=== PATIENT | male | born 1940 | race Caucasian/White ===

== ENCOUNTER 2016-07-13 10:27 | Day surgery (SDC) | payer MEDICARE ==
[~2016-07-13 10:27] MED LIST: ALPRAZolam 0.25 MG TAB PO ONE; SODIUM BICARB 4% 5 ML VIAL (0.48 MEQ/ML) MISCELLANE PRN
[2016-07-13 11:13] VITALS: RESP 14; TEMP 97.7
--- NOTE | 2016-07-13 12:31 | US ---
Ultrasound-guided right axilla lymph node core biopsy CLINICAL HISTORY: Abnormal CAT scan with enlarged right lymph nodes FINDINGS: The procedure was explained to the patient. The risks, complications, benefits and alternatives were discussed and any questions were answered. Informed consent was obtained. Patient was placed supin e on the ultrasound table and prepped and draped in the usual sterile fashion. Utilizing a 18 gauge needle, 3 samples were obtained through the requested lymph node.. Patient was stable throughout the procedure. Pathology is pending. All elements of maximal barrier technique were utilized. IMPRESSION: 1. Successful ultrasound guided core biopsy right axilla mass, lymph node. Pathology pending.
[2016-07-13 12:35] VITALS: BP 127/66; PULSE 73
== END 2016-07-13 12:28 | disposition home or self-care (01) ==
LOC: RADPROMAIN 10:27
PROVIDERS: ATTEND Internal Medicine Hematology & Oncology
DX: C96.9 Malignant neoplasm of lymphoid, hematopoietic and related tissue, unspecified (principal); C34.11 Malignant neoplasm of upper lobe, right bronchus or lung
CPT/HCPCS: 38505; 76942; 81210; 81235; 81275; 81276; 81404; 81405; 81479; 88305; 88341; 88342; 88377

== ENCOUNTER → 2016-09-22 | Outpatient (CLI) | payer MEDICARE ==
[2016-09-22 08:46] LABS: Blood Urea Nitrogen 34 mg/dL (9-20); Non-African American GFR(MDRD) >60 (>60 ml/min/1.73 sqM)
--- NOTE | 2016-09-22 09:47 | CT ---
EXAMINATION TYPE: CT chest w con DATE OF EXAM: 09/22/2016 9:09 AM COMPARISON: 06/29/2016, 03/23/2016, 07/15/2015 HISTORY: 75 year-old male history of Lung CA. Prior left lung bullectomy. TECHNIQUE: Contiguous axial scanning of the chest after the administration of 80 mL of Visipaque 320. Coronal/sagittal reconstructions performed. CT DLP: 267.5mGycm. Automatic exposure control utilized for a dose reduction. FINDINGS: The heart is normal size without pericardial effusion. Coronary vessel calcifications are present in remarkable for coronary artery disease. Ascending aorta is ectatic at 3.7 cm with mild atherosclerotic arch calcifications and conventional a [facility] vessel branching anatomy. There is ectasia of the upper abdominal aorta at 3.0 cm and ectasia of the lower descending thoracic aorta at 2.7 cm with moderate atherosclerotic change. Scattered small mediastinal lymph nodes. However, there is right axillary lymphadenopathy with hernan us enlarged lymph nodes measuring up to 1.7 cm short axis with lymph nodes measuring up to 1.5 cm nate rt axis on 06/21/2016 and more numerous from 03/23/2016. There is stable minimal residual pleural parenchymal thickening at the site of previous medial right upper lobe mass. Staple line from prior right apical bullectomy. Advanced emphysematous change especially in the upper lungs. Stable pleural parenchymal scarring post erior left upper lobe, axial image 12 and 13. No new suspicious pulmonary nodule or mass. No consolid ation or pleural effusion. Some surgical clips are noted at the GE junction. There is a moderate-sized hiatal hernia. Stable 1.7 cm cyst anterior left kidney. Adrenal glands remain clear. Inferior splenule noted. Bones: Right-sided thoracotomy change. No osseous destructive process. Degenerative disc disease mid to lower thoracic spine. IMPRESSION: 1. Redemonstrated suspicious right axillary lymphadenopathy measuring up to 1.7 cm short axis. As com pared to 06/29/2016, some of these lymph nodes are larger by a couple millimeters. 2. Advanced emphysema with stable pleural parenchymal thickening along the medial right upper lobe at the site of patient's previous lung mass. 3. Moderate sized hiatal hernia.
== END | disposition home or self-care (01) ==
LOC: RADCTMAIN 08:04
PROVIDERS: ATTEND Internal Medicine Hematology & Oncology
DX: J43.9 Emphysema, unspecified (principal); R91.8 Other nonspecific abnormal finding of lung field; C34.11 Malignant neoplasm of upper lobe, right bronchus or lung
CPT/HCPCS: 82565; 84520; 71260; 36415; Q9967

== ENCOUNTER 2016-11-18 11:51 | Observation (INO) | payer MEDICARE ==
[2016-11-18] MEDS ORDERED: oxyCODONE-APAP 5-325MG 1 EACH TAB PO PRN (14:00)
[2016-11-18] MEDS ORDERED: NALOXONE 0.4 MG/ML 1 ML VIAL IV PRN (14:00)
[2016-11-18] MEDS ORDERED: MAGNESIUM HYDROXIDE 2,400 MG/10 ML CUP PO PRN (14:00)
[2016-11-18] MEDS ORDERED: methylPREDNISolone SOD SUCCI 125 MG/2 ML VIAL IV STA (14:04)
[2016-11-18] MEDS ORDERED: IPRATROPIUM-ALBUTEROL 3 ML NEB INHALATION PRN (14:04)
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
[2016-11-18 15:39] LABS: INR 1.2 (<1.1); Prothrombin Time 11.5 sec (9.0-12.0)
[2016-11-18] MEDS: ENOXAPARIN 40 MG/0.4 ML SYRINGE SQ SCH (15:39)
[2016-11-18 15:41] LABS: Anisocytosis Slight; Basophils # (A) 0.1 k/uL (0-0.2); Basophils % (A) 1 %; CH 34.2; CHCM 32.8; Eosinophils # (A) 0.1 k/uL (0-0.7); Eosinophils % (A) 1 %; HCT 27.4 % (39.0-53.0); HDW 2.95; Luc # (Auto) 0.22; Luc % (Auto) 4; Lymphocytes # (A) 1.1 k/uL (1.0-4.8); Lymphocytes % (A) 19 %; MCH 34.5 pg (25.0-35.0); MCHC 32.9 g/dL (31.0-37.0); MCV 104.8 fL (80.0-100.0); Macrocytosis Marked; Mean Platelet Volume 6.8; Monocytes # (A) 0.7 k/uL (0-1.0); Monocytes % (A) 13 %; Neutrophils # (A) 3.6 k/uL (1.3-7.7); Neutrophils % (A) 63 %; RBC 2.61 m/uL (4.30-5.90); WBC 5.7 k/uL (3.8-10.6); WBC (Perox) 5.37
[2016-11-18 15:41] LABS: Appearance,Urine Clear (Clear); Bilirubin,Urine Negative (Negative); Glucose,Urine (UA) Negative (Negative); Ketones,Urine Negative (Negative); Leukocyte Esterase,Urine Negative (Negative); Nitrite,Urine Negative (Negative); Protein,Urine Negative (Negative); Specific Gravity,Urine 1.014 (1.001-1.035); UA Billing (MACRO vs. MICRO) CHEM; Urobilinogen,Urine <2.0 mg/dL (<2.0)
[2016-11-18] MEDS: MORPHINE SULFATE 4 MG/ML SYRINGE IV PRN ×2 (15:49→19:56)
[2016-11-18 15:53] LABS: ALT 77 U/L (21-72); AST 63 U/L (17-59); Alkaline Phosphatase 102 U/L (38-126); Amylase 51 U/L (30-110); Anion Gap 9 mmol/L; Blood Urea Nitrogen 23 mg/dL (9-20); Calcium 9.6 mg/dL (8.4-10.2); Carbon Dioxide 27 mmol/L (22-30); Chloride 104 mmol/L (98-107); Glucose 82 mg/dL (74-99); LDH 868 U/L (313-618); Magnesium 1.5 mg/dL (1.6-2.3); Non-African American GFR(MDRD) >60 (>60 ml/min/1.73 sqM); Phosphorous 3.8 mg/dL (2.5-4.5); Potassium 4.1 mmol/L (3.5-5.1); Sodium 140 mmol/L (137-145); Total Bilirubin 0.6 mg/dL (0.2-1.3)
[2016-11-18 15:57] LABS: Polychromasia Present
[2016-11-18 17:16] VITALS: RESP 16
[2016-11-18] MEDS: FAMOTIDINE 20 MG TAB PO SCH (19:51)
[2016-11-18] MEDS: SYMBICORT 160-4.5 MCG INHALER INHALATION SCH (20:24)
[2016-11-18] MEDS ORDERED: ATORVASTATIN 40 MG TAB PO SCH (21:00)
[2016-11-18] MEDS ORDERED: MELATONIN 3 MG TABLET PO PRN (21:00)
[2016-11-18 23:57] LABS: Glucose,Whole Blood 154 mg/dL (75-99)
[2016-11-19 05:59] LABS: Glucose,Whole Blood 119 mg/dL (75-99)
[2016-11-19] MEDS: SYMBICORT 160-4.5 MCG INHALER INHALATION SCH (07:30)
[2016-11-19 09:05] VITALS: TEMP 98.3
[2016-11-19] MEDS: FAMOTIDINE 20 MG TAB PO SCH (09:09)
[2016-11-19] MEDS: MORPHINE SULFATE 4 MG/ML SYRINGE IV PRN (09:10)
[2016-11-19 12:49] LABS: Glucose,Whole Blood 109 mg/dL (75-99)
[2016-11-19 13:07] VITALS: BMI 23.8
[2016-11-19] MEDS: ENOXAPARIN 40 MG/0.4 ML SYRINGE SQ SCH (13:37)
--- NOTE | 2016-11-19 15:50 | NM ---
EXAMINATION TYPE: NM bone scan whole body DATE OF EXAM: 11/19/2016 3:20 PM COMPARISON: Correlation CT chest 09/22/2016 HISTORY: 75-year-old male lumbar pain for one week radiating down the legs. History of lung cancer. TECHNIQUE: Delayed whole-body scanning was performed following the injection of 26.4 mCi Tc 99m MDP. Whole body anterior and posterior images acquired 3 hours post injection. FINDINGS: There is focal intense tracer activity involving the mid thoracic vertebral body, possibly T7. No oth er suspicious tracer accumulation is seen. There is a S-shaped scoliotic curvature. IMPRESSION: Focal intense tracer activity involving a midthoracic vertebral body, probably T7. Findings could rep resent a solitary osseous metastasis or osteoporotic/pathologic compression fracture.
--- NOTE | 2016-11-19 15:55 | P.DS ---
Providers Date of admission: 11/18/16 13:30 Attending physician: Shakila Cevallos Primary care physician: [facility] Course: This is a 75-year-old gentleman with diagnosis of metastatic lung cancer who underwent chemotherapy 3 weeks ago is seen by Dr. Junior is sent from [facility] with complaints of acute onset lumbar back pain. Patient noted acute onset lumbar pain a week ago. Stated that he was not performing any physical activity at that time. Stated that the pain has gotten progressively worse over the last week and limited [facility]. Patient was noted to have some degree of reproducible T with straight leg on the left side hence was sent into our hospital for further evaluation. Patient denies having any numbness or tingling his main complaint is pain at his lower back shooting down his left lower extremity denies having any loss of rectal for her urinary control No fevers chills nausea vomiting or diarrhea is reported She states that he underwent his last [place] noted to have a PET scan in 2014 however no repeat scans are noted Patient status pain is uncontrolled 11/19/2016 Patient is comfortable. Is able to get out of bed without much difficulty States that his back pain is more tolerable No motor or sensory weakness is appreciated Does continue to have some pain in his back that is reproducible from significant straight leg raise on the left side Neck is supple no JVD Lungs good air entry clear to auscultation no rhonchi or wheezing Heart S1-S2 heard regular rate and rhythm no murmurs appreciated Abdomen is soft nontender no organomegaly bowel sounds are intact Neurologically cranial nerves II-12 grossly intact no focal motor or sensory deficits noted Skin no abnormalities appreciated Assessment and Plan Plan: Acute lumbar nerve root compression #2 metastatic lung cancer #3 history of tobacco use #4 COPD #5 hypertension #6 dyslipidemia After discussion MRI is canceled. Obtained a bone scan the results do show a lesion on T7 the interpretation will be deferred to Dr. Junior Current patient's symptoms are appear to be in the L2 L1 area and have improved significantly which clinically would be convincing of a mild disc herniation with some vertebral muscle spasms We'll discharge the patient on recommendations of light activity and pain control with Flexeril as well Plan - Discharge Summary New Discharge Prescriptions: Cyclobenzaprine [Flexeril] 5 mg PO TID #20 tablet oxyCODONE-APAP 5-325MG [Percocet 5-325 mg] 1 each PO Q4HR PRN #50 tab PRN Reason: Severe Pain Discharge Medication List Albuterol Sulfate [Proair Hfa] 1 - 2 puff INHALATION RT-Q6H PRN 07/14/15 [ History] Budesonide/Formoterol Fumarate [Symbicort 160-4.5 Mcg Inhaler] 2 puff INHALATION RT-BID 07/14/15 [History] Fish Oil/Dha/Epa [Fish Oil 1,200 mg Fish Oil] 1,200 mg PO DAILY 07/14/15 [ History] Multivit-Min/FA/Lycopene/Lut [Centrum Silver Tablet] 1 tab PO DAILY 07/14/15 [ History] Tiotropium 18 Mcg/Puff [Spiriva] 1 cap INHALATION DAILY 07/14/15 [History] Atorvastatin Calcium [Lipitor] 40 mg PO HS 07/11/16 [History] Cholecalciferol (Vitamin D3) [Vitamin D3] 10,000 unit PO WEEKLY 07/11/16 [ History] predniSONE 10 mg PO DAILY 11/18/16 [History] Cyclobenzaprine [Flexeril] 5 mg PO TID #20 tablet 11/19/16 [Rx] oxyCODONE-APAP 5-325MG [Percocet 5-325 mg] 1 each PO Q4HR PRN #50 tab 11/19/16 [ Rx] Follow up Appointment(s)/Referral(s): Rich Littlejohn MD [STAFF PHYSICIAN] - 1 Week (Patient to call Dr. Littlejohn's office Monday to schedule a follow up appointment, the office is closed at time of discharge.) Patient Instructions/Handouts: Oxycodone/Acetaminophen (By mouth), Cyclobenzaprine (By mouth) Discharge Disposition: HOME SELF-CARE
[2016-11-19 16:49] VITALS: BP 140/72; PULSE 89
== END 2016-11-19 16:30 | disposition home or self-care (01) ==
LOC: 5ONC 13:30
PROVIDERS: ADMIT Internal Medicine; ATTEND Internal Medicine
DX: G54.4 Lumbosacral root disorders, not elsewhere classified (principal); C34.91 Malignant neoplasm of unspecified part of right bronchus or lung; Z87.891 Personal history of nicotine dependence; J44.9 Chronic obstructive pulmonary disease, unspecified; I10 Essential (primary) hypertension; E78.5 Hyperlipidemia, unspecified; Z92.21 Personal history of antineoplastic chemotherapy; Z92.3 Personal history of irradiation; Z83.3 Family history of diabetes mellitus; Z82.49 Family history of ischemic heart disease and other diseases of the circulatory system; Z88.4 Allergy status to anesthetic agent; Z88.8 Allergy status to other drugs, medicaments and biological substances; I25.2 Old myocardial infarction; M19.90 Unspecified osteoarthritis, unspecified site; Z87.01 Personal history of pneumonia (recurrent); Z95.5 Presence of coronary angioplasty implant and graft
CPT/HCPCS: 96376 ×2; 96374; 96375; 94640 ×2; 82747; 80053; 82607; 82150; 82310; 83615; 83690; 83735; 84100; 85025; 85610; 81003; 78306; G0378 ×2; G0379; A9503; J2270 ×2; J2930

== ENCOUNTER → 2016-11-24 | Outpatient (CLI) | payer MEDICARE ==
--- NOTE | 2016-11-24 17:35 | MR ---
EXAMINATION TYPE: MR thoracic spine wo/w con DATE OF EXAM: 11/24/2016 5:20 PM COMPARISON: NONE HISTORY: Mid back pain x 2 weeks, lung ca 2017 CONTRAST: Standard multiplanar, multisequence MRI departmental protocol utilizing 15 mL intravenous MultiHance gadolinium contrast. FINDINGS: There is a mild thoracic kyphotic curvature. There is anterior wedging of T7 vertebra with 25% loss of height. There is 15% wedging of T6. There is increased signal on the T2 images involving the T6 T5 T4 T3 T2 vertebral bodies. 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 I see no paraspinal mass. Posterior elements appear intact. The thoracic spinal cord has fairly normal signal pattern. There i s no evidence of edema or mass. There is no evidence of thoracic spinal stenosis. There is mild enhan cement within the posterior aspect of the T7 vertebral body. IMPRESSION: There are mild compression fractures of T6 and T7. There are signal changes in the vertebra from T2 t o T6 consistent with a radiation portal with mild edema. There is also some edema in the T7 vertebral body. A destructive focal mass is not definitely seen. The possibility of pathologic fracture cannot be entirely Excluded in T7 vertebral body. I think that osteoporotic fracture is more likely. I do not see a focal area of bone destruction or e xpansion to suggest metastatic disease.
== END | disposition home or self-care (01) ==
LOC: RADMRIMAIN 15:55
PROVIDERS: ATTEND Internal Medicine Hematology & Oncology
DX: C34.90 Malignant neoplasm of unspecified part of unspecified bronchus or lung (principal); M48.54XA Collapsed vertebra, not elsewhere classified, thoracic region, initial encounter for fracture
CPT/HCPCS: 72157; A9577; 80053

== ENCOUNTER → 2016-12-19 | Outpatient (CLI) | payer MEDICARE ==
[2016-12-19 13:03] LABS: Blood Urea Nitrogen 31 mg/dL (9-20); Non-African American GFR(MDRD) >60 (>60 ml/min/1.73 sqM)
--- NOTE | 2016-12-19 13:53 | CT ---
EXAMINATION TYPE: CT chest w con DATE OF EXAM: 12/19/2016 COMPARISON: 09/22/2016 CT, MRI of thoracic spine 11/26/2016 HISTORY: Lung CA CT DLP: 294.5 mGycm Automated exposure control for dose reduction was used. CONTRAST: CT scan of the chest is performed with IV Contrast, patient injected with 100 mL of Omnipaque 300. FINDINGS: The heart is normal size without pericardial effusion. Coronary vessel calcifications are present in remarkable for coronary artery disease. Ascending aorta is ectatic at 3.7 cm with mild atherosclerotic arch calcifications and conventional a [facility] vessel branching anatomy. There is ectasia of the upper abdominal aorta at 3.0 cm and ectasia of the lower descending thoracic aorta at 2.7 cm with moderate atherosclerotic change. Scattered small mediastinal lymph nodes. However, there is right axillary lymphadenopathy with hernan us enlarged lymph nodes measuring up to 2.0 cm short axis with lymph nodes measuring up to 1.7 cm nate rt axis on previous. There is stable minimal residual pleural parenchymal thickening at the site of previous medial right upper lobe mass. Staple line from prior right apical bullectomy. Advanced emphysematous change especially in the upper lungs. Stable pleural parenchymal scarring post erior left upper lobe. No new suspicious pulmonary nodule or mass. No consolidation or pleural effusion. Some surgical clips are noted at the GE junction. There is a mo derate-sized hiatal hernia. Stable 1.7 cm cyst anterior left kidney. Indeterminate right renal lesion. Adrenal glands remain anna r. Inferior splenule noted. Bones: Right-sided thoracotomy change. No osseous destructive process. Degenerative disc disease mid to lower thoracic spine. Rib deformity on the right may be related to previous surgery rather than me tastasis is stable from previous. There is a compression fracture mid thoracic spine moderate to kitty re degree The previous exam. No definite soft tissue component. IMPRESSION: 1. Redemonstrated suspicious right axillary lymphadenopathy measuring up to 2 cm cm short axis. These are increased in size from the previous exam with a maximal short axis measurement was 1.7 cm. 2. Advanced emphysema with stable pleural parenchymal thickening along the medial right upper lobe at the site of patient's previous lung mass. 3. Moderate sized hiatal hernia. 4. Moderate compression fracture mid thoracic spine. Findings stable to recent MRI.
== END | disposition home or self-care (01) ==
LOC: RADCTMAIN 12:00
PROVIDERS: ATTEND Internal Medicine Hematology & Oncology
DX: C34.11 Malignant neoplasm of upper lobe, right bronchus or lung (principal); J43.9 Emphysema, unspecified
CPT/HCPCS: 82565; 84520; 71260; 36415; Q9967

== ENCOUNTER 2017-01-17 12:07 | Day surgery (SDC) | payer MEDICARE ==
[2017-01-17 13:03] VITALS: TEMP 97.4
[2017-01-17] MEDS ORDERED: CHLOROPROCAINE 3% 30 MG/ML 20 ML VIAL CAUDALBLCK PRN (13:14)
--- NOTE | 2017-01-17 14:30 | US ---
ULTRASOUND GUIDED CORE BIOPSY RIGHT NECK MASS: CLINICAL HISTORY: Right neck mass FINDINGS: The procedure was explained to the patient. The risks, complications, benefits and alternatives were discussed and any questions were answered. Informed consent was obtained. Patient was placed supin e on the ultrasound table and prepped and draped in the usual sterile fashion. Utilizing a 18 gauge needle, 2 18-gauge core samples were obtained through the right neck mass.. Patient was stable throughout the procedure. Pathology is pending. All elements of maximal barrier and sterile technique were utilized. IMPRESSION: 1. Successful ultrasound guided core biopsy right neck mass.
[2017-01-17 14:37] VITALS: BP 123/79; PULSE 90; RESP 16
== END 2017-01-17 14:30 | disposition home or self-care (01) ==
LOC: RADPROMAIN 12:07
PROVIDERS: ATTEND Internal Medicine Hematology & Oncology
DX: C96.9 Malignant neoplasm of lymphoid, hematopoietic and related tissue, unspecified (principal); C34.11 Malignant neoplasm of upper lobe, right bronchus or lung
CPT/HCPCS: 88305; 88342; 88341; 76942; 38505; J2400

== ENCOUNTER 2017-02-08 12:55 | Day surgery (SDC) | payer MEDICARE ==
[2017-02-07 12:54] VITALS: BMI 23.6
[~2017-02-08 12:55] MED LIST changes: -ALPRAZolam 0.25 MG TAB PO ONE; +HYDROmorphone 1 MG/ML 1 ML SYRINGE IVP PRN; +LACTATED RINGERS 1,000 ML IV SCH; +LIDOCAINE 1% 20 ML VIAL (10MG/ML) FOR IV START INTRADERMA PRN; +Pre Op ABX Message 1 EACH MISC MISCELLANE ONE; -SODIUM BICARB 4% 5 ML VIAL (0.48 MEQ/ML) MISCELLANE PRN
[2017-02-08 13:17] VITALS: TEMP 97
[2017-02-08 13:33] LABS: Glucose,Whole Blood 95 mg/dL (75-99)
[2017-02-08 13:36] LABS: CH 32.4; HCT 39.4 % (39.0-53.0); HDW 2.35; HGB 12.9 gm/dL (13.0-17.5); MCH 32.2 pg (25.0-35.0); MCHC 32.7 g/dL (31.0-37.0); MCV 98.5 fL (80.0-100.0); Mean Platelet Volume 7.1; RDW 14.2 % (11.5-15.5); WBC 5.4 k/uL (3.8-10.6)
[2017-02-08] MEDS ORDERED: LIDOCAINE 1% INJ 10MG/ML (20 ML MDV) ONE (15:18)
[2017-02-08] MEDS ORDERED: PROPOFOL 10 MG/ML 20 ML VIAL IV ONE (15:18)
[2017-02-08] MEDS ORDERED: KETAMINE 10 MG/ML 20 ML VIAL ONE (15:18)
[2017-02-08] MEDS ORDERED: fentaNYL (PF) 50 MCG/ML 2 ML AMP ONE (15:18)
[2017-02-08] MEDS ORDERED: MIDAZOLAM 2 MG/2 ML VIAL ONE (15:18)
[2017-02-08] MEDS ORDERED: HEPARIN SODIUM,PORCINE 100 UNIT/ML 5 ML VIAL IV ONE ×3 (15:32)
[2017-02-08] MEDS ORDERED: SODIUM CHLORIDE 0.9% 50 ML with ceFAZolin 2,000 MG IV ONE ×2 (15:34)
[2017-02-08] MEDS ORDERED: BUPIVACAINE (PF) 0.25% 30 ML VIAL SQ ONE ×2 (15:44)
[2017-02-08] MEDS ORDERED: LACTATED RINGERS 1,000 ML IV ONE ×2 (16:28)
[2017-02-08 16:49] VITALS: RESP 16
[2017-02-08 17:07] VITALS: PULSE 73
--- NOTE | 2017-02-08 17:10 | FL ---
Fluoroscopy Fluoroscopy support 32 seconds fluoroscopy time supplied to the referring clinician. 1 intraoperative C-arm images docum ent the procedure. See dictated report from general surgery.
[2017-02-08 17:26] VITALS: BP 141/80
--- NOTE | 2017-02-08 17:56 | XR ---
EXAMINATION TYPE: XR chest 1V confirm line [facility] DATE OF EXAM: 02/08/2017 COMPARISON: CT chest December 19, 2016. Chest x-ray July 15, 2015. HISTORY: Port placement. TECHNIQUE: Single AP portable frontal upright view of the chest is obtained. FINDINGS: There is new right internal jugular Mediport catheter with tip in SVC. There is background chronic emphysematous change with biapical scarring. There is no focal air space opacity, pleural ef fusion, or pneumothorax seen. The cardiac silhouette size is upper limits of normal with atheroscler otic thoracic aorta. Retrocardiac opacity consistent with moderate size hiatal hernia is redemonstr ated. The osseous structures are demineralized. IMPRESSION: New right internal jugular Mediport catheter with tip in SVC. No evidence of sizable pne umothorax. Moderate to severe emphysematous change with upper lung scarring. Moderate size hiatal her lester redemonstrated.
--- NOTE | 2017-02-13 11:52 | P.OP ---
Date of Procedure: 02/08/17 Preoperative Diagnosis: Metastatic lung cancer Postoperative Diagnosis: Same Procedure(s) Performed: Insertion of 8-Tamazight PowerPort under fluoroscopic and SonoSite guidance Implants: 8French powerport Anesthesia: MAC, local Pathology: none sent Condition: stable Disposition: PACU Indications for Procedure: 76 years old male presents for Mediport placement. He has metastatic lung cancer. Operative Findings: Description of Procedure: The patient was brought to the operating room and placed in supine position with both arms tucked. A footboard was placed. Chlorhexidine was used to prep the neck followed by application of sterile drapes and an Ioban dressing . A timeout was performed to verify correct patient and correct procedure. Patient was confirmed to receive perioperative IV antibiotics and VTE prophylaxis. An ultrasound was performed of the right neck to identify the carotid artery and internal jugular vein. The internal jugular vein was compressible and patent . Photodocumentation was made. Local anesthetic was infiltrated to create a field block. Seldinger technique was used and the internal jugular vein was accessed under direct ultrasound guidance. There was good backflow of dark venous blood. The guidewire was inserted and fluoroscopic images obtained to confirm the tip in SVC. The needle was removed followed by insertion of a dilator peel-away sheath. Local anesthetic was infiltrated along the inferior aspect of the right clavicle. A 2.5 cm skin incision was made and dissection was carried up to the pectoralis major muscle. A pocket was created for the port. The catheter tubing was connected to the port using the conector after flushing both the port and the catheter with normal saline. The tunneling device was connected to the end of the catheter and after placement of the port in the subcutaneous pocket the tunneling device was passed from the lower incision to the counter incision in the neck. The catheter was measured at the junction of SVC and right atrium. The inner cannula of the peel-away sheath was removed and catheter was gradually inserted. The peel-away sheath was gradually removed. Fluoroscopic image confirmed the tip of the catheter at the junction of SVC and right atrium. There was no kink, fold or torsion of the catheter and the port. The Sanchez needle was used to access the port and easy backflow was obtained. This was flushed with 10 mL of normal saline and 10 mL of Hep-Lock was inserted. The skin incision was closed in 3 layers using 3-0 Vicryl interrupted stitches and a running suture of 4-0 Monocryl. Counter incision in the neck was also closed using 3-0 Vicryl followed by 4-0 Monocryl. Dermabond skin glue was applied followed by Telfa and Tegaderm dressing. The sponge, instrument and needle count were correct -2 Patient tolerated the procedure well and was taken to post anesthesia care unit in stable condition Final chest x-ray showed the tip of the catheter in SVC and no pneumothorax. Total fluoroscopic time was 32 seconds
== END 2017-02-08 17:49 | disposition home or self-care (01) ==
LOC: OR 12:55
PROVIDERS: ATTEND Surgery
DX: C34.90 Malignant neoplasm of unspecified part of unspecified bronchus or lung (principal); I25.10 Atherosclerotic heart disease of native coronary artery without angina pectoris; I10 Essential (primary) hypertension; Z87.891 Personal history of nicotine dependence; J43.9 Emphysema, unspecified; K21.9 Gastro-esophageal reflux disease without esophagitis; Z95.1 Presence of aortocoronary bypass graft; Z79.82 Long term (current) use of aspirin; Z79.891 Long term (current) use of opiate analgesic; Z79.51 Long term (current) use of inhaled steroids; Z79.52 Long term (current) use of systemic steroids; Z79.899 Other long term (current) drug therapy; Z91.09 Other allergy status, other than to drugs and biological substances
CPT/HCPCS: 85027; 77001; 36561; 76937; C1788; J2250; J1642; J2001; J3010; J0690; J2704

== ENCOUNTER → 2017-04-20 | Outpatient (CLI) | payer MEDICARE ==
[2017-04-20 11:22] LABS: Blood Urea Nitrogen 18 mg/dL (9-20); Non-African American GFR(MDRD) >60 (>60 ml/min/1.73 sqM)
--- NOTE | 2017-04-20 13:14 | CT ---
EXAMINATION TYPE: CT chest w con DATE OF EXAM: 04/20/2017 COMPARISON: 12/09/2016 HISTORY: Follow up Lung Cancer CT DLP: 306.1 mGycm Automated exposure control for dose reduction was used. CONTRAST: CT scan of the chest is performed with IV Contrast, patient injected with 100 mL of Omnipaque 300. FINDINGS: The heart is normal size without pericardial effusion. Coronary vessel calcifications are present in remarkable for coronary artery disease. Emphysematous changes noted. Mediport catheter seen. Ascending aorta is ectatic at 3.7 cm with mild atherosclerotic arch calcifications and conventional a [facility] vessel branching anatomy. There is ectasia of the upper abdominal aorta at 3.0 cm and ectasia of the lower descending thoracic aorta at 2.7 cm with moderate atherosclerotic change. Scattered small mediastinal lymph nodes. There appear stable with a subcarinal lymph node measuring short axis of 8 mm. There is right axillary lymphadenopathy with of enlarged lymph nodes measuring up to 1.2 cm in short axis with lymph nodes measuring up to 2 cm in short axis on previous. There is stable minimal residual pleural parenchymal thickening at the site of previous medial right upper lobe mass. Staple line from prior right apical bullectomy. Advanced emphysematous change especially in the upper lungs. Stable pleural parenchymal scarring post erior left upper lobe. No new suspicious pulmonary nodule or mass. No consolidation or pleural effusion. Some surgical clips are noted at the GE junction. There is a mo derate-sized hiatal hernia. Stable 1.7 cm cyst anterior left kidney. Indeterminate right renal lesion . Adrenal glands remain clear. Inferior splenule noted. Coronary artery calcifications noted. Bones: Right-sided thoracotomy change. No osseous destructive process. Degenerative disc disease mid to lower thoracic spine. There is sclerosis involving the upper thoracic vertebral segment with very mild to moderate anterior wedge deformity suspicious for pathologic fracture and metastases. No defin ite soft tissue component. Rib deformity on the right may be related to previous surgery rather than metastasis is stable from previous. There is a compression fracture mid thoracic spine moderate to se zheng degree IMPRESSION: 1. Redemonstrated suspicious right axillary lymphadenopathy measuring up to 1.2 cm cm short axis. The se are reduced in size from the previous exam with a maximal short axis measurement was 2 cm. 2. Advanced emphysema with stable pleural parenchymal thickening along the medial right upper lobe at the site of patient's previous lung mass. 3. There now is a stable moderate compression deformity of the upper thoracic spine segment. Patholog ic fracture in the differential diagnosis with sclerosis and no surrounding soft tissue mass. 4. Moderate compression fracture mid thoracic spine. Findings stable to recent MRI.
== END | disposition home or self-care (01) ==
LOC: RADPROMAIN 10:30
PROVIDERS: ATTEND Internal Medicine Hematology & Oncology
DX: J43.9 Emphysema, unspecified (principal); J98.4 Other disorders of lung; C34.11 Malignant neoplasm of upper lobe, right bronchus or lung
CPT/HCPCS: 82565; 84520; 71260; Q9967; J1642

== ENCOUNTER → 2017-07-12 | Outpatient (CLI) | payer MEDICARE ==
[2017-07-12 12:06] LABS: Blood Urea Nitrogen 17 mg/dL (9-20)
--- NOTE | 2017-07-13 09:54 | CT ---
EXAMINATION TYPE: CT ChestAbdPelvis w con DATE OF EXAM: 07/13/2017 COMPARISON: CT chest April 20, [address] chest abdomen and pelvis December 22, 2015. O riginal PET/CT June 20, 2015. HISTORY: Lung cancer progress study. History of prior surgery. CT DLP: 1731 mGycm. Automated Exposure Control for Dose Reduction was Utilized. CONTRAST: CT scan of the thorax, abdomen and pelvis is performed with oral and with IV Contrast, patient inject ed with 100 ml mL of Omnipaque 350. FINDINGS: LUNGS: There is background moderate emphysematous change with more severe emphysematous change in the lung apices. There is stable mild eccentric pleural thickening anterior medial right upper lung near axial image 16 at area of prior mass or neoplasm. No new nodules or masses are identified. No pleura l effusion or pneumothorax is seen. MEDIASTINUM: There are no greater than 1 cm hilar or mediastinal lymph nodes. No cardiomegaly or pe ricardial effusion is seen. Coronary artery calcification is redemonstrated which is noted marker fo r coronary artery disease. OTHER: There is stable right internal jugular Mediport catheter with tip in SVC. There is stable susp icious right axillary adenopathy with reference 1.7 x 1.3 cm posterior axillary lymph node axial imag e 19 unchanged in size from most recent CT axial image 17. LIVER/GB: No significant abnormality is appreciated. PANCREAS: No significant abnormality is seen. SPLEEN: No significant abnormality is seen. ADRENALS: No significant abnormality is seen. KIDNEYS: There are a few simple appearing cysts scattered throughout both kidneys redemonstrated. BOWEL: There are surgical change near diaphragmatic hiatus. There is persistent moderate size hiatal hernia. There is no suspicious small or large bowel dilatation. There is sigmoid colonic diverticulos is redemonstrated. GENITAL ORGANS: Heterogeneous enlarged prostate gland consistent with BPH is redemonstrated. Suspect TURP type defect coronal image 50. LYMPH NODES: No greater than 1cm abdominal or pelvic lymph nodes are appreciated. OSSEOUS STRUCTURES: Osseous structures are demineralized with underlying scoliosis. There is mild to moderate chronic compression type fracture deformity T7 level with superior endplate sclerosis redemo nstrated. Moderate joint space loss in both hips, left greater than right with acetabular spurring is seen. Met allic screws right humeral head level are partially imaged. OTHER: There is moderate atherosclerotic change distal abdominal aorta extending to iliac branch vess els. IMPRESSION: Background moderate to advanced emphysematous change with stable suspicious right axillar y adenopathy or suspected metastatic disease. No convincing evidence of new metastatic disease in the abdomen or pelvis.
== END | disposition home or self-care (01) ==
LOC: RADCTMAIN 11:21
PROVIDERS: ATTEND Internal Medicine Hematology & Oncology
DX: C34.11 Malignant neoplasm of upper lobe, right bronchus or lung (principal); J43.9 Emphysema, unspecified
CPT/HCPCS: 82565; 84520; 71260; 74177; Q9967; J1642

== ENCOUNTER → 2017-10-05 | Outpatient (CLI) | payer MEDICARE ==
--- NOTE | 2017-10-06 08:21 | CT ---
EXAMINATION TYPE: CT ChestAbdPelvis w con DATE OF EXAM: 10/05/2017 COMPARISON: NONE HISTORY: Lung cancer CT DLP: 622.9 mGycm. Automated Exposure Control for Dose Reduction was Utilized. CONTRAST: CT scan of the thorax, abdomen and pelvis is performed with IV Contrast, patient injected with 100 mL of Isovue 300. FINDINGS: LUNGS: There is redemonstration of focal pleural parenchymal thickening medially within the right upp er lobe on images 19 and 20, similar to the prior exam of 07/12/2017. Biapical pleural parenchymal sca rring and focal pleural thickening along the right upper lobe peripherally on series 4 image 28 and 2 9 are also unchanged from the prior. Findings are superimposed upon a background of moderate parasept al and centrilobular emphysematous change. Right-sided Mediport is again noted. No new pulmonary nodu les, focal masses or focal consolidation are seen. Punctate subpleural nodular density is unchanged f rom the prior on series 4 image 42 within the posterior right lower lobe and may represent a small ar ea of chronic atelectasis as it appears somewhat linear. MEDIASTINUM: There are no greater than 1 cm hilar or mediastinal lymph nodes. No pericardial effusi on is seen. Moderate calcific atheromatous changes are seen of the thoracic aorta. Ascending thoraci c aorta and main pulmonary artery are nonenlarged although the ascending thoracic aorta is upper limi ts of normal measuring 3.9 cm. Moderate three-vessel coronary artery calcifications are noted. OTHER: There is increasing right axillary adenopathy for instance there is a lymph node within the garzon perior right axilla on series 3 image 16 measuring 1.4 cm in short axis as opposed to 1.0 cm in short axis on the prior exam just inferior to this on image 19 there is an additional enlarged lymph node measuring at least 1.7 cm in short axis and previously measuring less than 1 cm. The previously measu red 1.7 x 1.3 cm lymph node on image 22 measures 1.9 x 1.6 cm currently. Other enlarged right axillar y lymph nodes are also seen. Minimal bilateral retroareolar gynecomastia is identified. LIVER/GB: No hepatic lesion is identified. A focal area of wedge-shaped hypoattenuation is seen in se gment 4A along the fissure for the falciform ligament, most commonly related to focal fatty infiltrat ion. Gallbladder is unremarkable. PANCREAS: Parenchyma enhances homogeneously without ductal dilatation.. SPLEEN: No significant abnormality is seen. Small splenule is seen adjacent to the andreafski spleen. ADRENALS: No nodularity or thickening. KIDNEYS: Bilateral simple renal cysts are redemonstrated. No hydronephrosis. BOWEL: There is a moderate hiatal hernia and contrast seen to the level of the thyroid gland within t he esophagus which may represent gastroesophageal reflux or diminished propulsion/peristalsis and cou ld relate to presbyesophagus. Scattered colonic diverticula are present without pericolonic fat stranding. No evidence of dilated b owel or bowel obstruction. Surgical sutures are present around the gastroesophageal junction at the d iaphragmatic hiatus. GENITAL ORGANS: The prostate gland is diffusely enlarged and heterogenous containing peripheral zone calcifications and measuring up to 5.5 cm in transverse dimension. There is again a suspected TURP de fect. LYMPH NODES: No greater than 1cm abdominal or pelvic lymph nodes are appreciated. OSSEOUS STRUCTURES: Again there is osseous demineralization and stable compression deformity of T7. T here is sclerosis of the lateral aspect of rib 4 on the right that could relate to prior fracture def ormity and is retrospectively unchanged from the prior. No new suspicious osseous lesions are seen. S clerosis of the right iliac bone may be degenerative but is unchanged from the prior. Punctate bone i sland is noted within the right femoral head. OTHER: Moderate calcific atheromatous changes are seen of the abdominal aorta and its branches. IMPRESSION: 1. Increasing right axillary adenopathy, again suspicious for metastatic disease. The largest lymph node measures 1.9 x 1.6 cm and previously measured 1.7 x 1.3 cm with additional lymph node measuring 1.7 cm and previously measuring less than 1 cm. Other enlarged lymph nodes are seen within the right axilla. 2. Stable multifocal pleural parenchymal thickening most compatible with posttreatment change with no new pulmonary nodules or masses. No new mediastinal adenopathy. 3. Sclerosis of right lateral rib 4 may represent prior fracture and is similar to the prior exam as well as right sacral sclerosis that is favored to be degenerative. T7 vertebral body compression frac ture is stable. No other new osseous findings. 4. No new evidence of infradiaphragmatic visceral or osseous metastasis.
== END | disposition home or self-care (01) ==
LOC: RADPROMAIN 12:04
PROVIDERS: ATTEND Internal Medicine Hematology & Oncology
DX: C34.11 Malignant neoplasm of upper lobe, right bronchus or lung (principal); J94.8 Other specified pleural conditions; M89.8X8 Other specified disorders of bone, other site; S22.069A Unspecified fracture of T7-T8 vertebra, initial encounter for closed fracture; R59.0 Localized enlarged lymph nodes
CPT/HCPCS: 82565; 84520; 71260; 74177; J1642; Q9967

== ENCOUNTER → 2017-12-12 | Outpatient (CLI) | payer MEDICARE ==
[2017-12-12 11:05] VITALS: BP 154/67; PULSE 73; RESP 16; TEMP 97.7
[2017-12-12 11:49] LABS: ALT 24 U/L (21-72); AST 22 U/L (17-59); Cholesterol 202 mg/dL (<200); HDL Cholesterol 49 mg/dL (40-60); LDL Cholesterol,Calculated 135 mg/dL (0-99); Triglycerides 92 mg/dL (<150)
== END | disposition home or self-care (01) ==
LOC: PROCWHC3 10:03
PROVIDERS: ATTEND Internal Medicine Cardiovascular Disease
DX: E78.2 Mixed hyperlipidemia (principal)
CPT/HCPCS: 80061; 84450; 84460; 36591; J1642

== ENCOUNTER → 2017-12-27 | Outpatient (CLI) | payer MEDICARE ==
--- NOTE | 2017-12-27 13:04 | CT ---
EXAMINATION TYPE: CT ChestAbdPelvis w con DATE OF EXAM: 12/27/2017 COMPARISON: 10/05/2017 HISTORY: Lung cancer, suspected METs CT DLP: 638.4 mGycm CONTRAST: CT scan of the chest, abdomen and pelvis is performed with Oral Contrast and with IV Contrast, patien t injected with 100 mL of [address]. [address] Chest: LUNGS: Again noted is focal pleural parenchymal thickening medially within the right upper lobe on im ages 15 through 19, similar to the prior exam of 10/05/2017. Biapical pleural parenchymal scarring and focal pleural thickening along the right upper lobe peripherallyalso unchanged from the prior. Findin gs are superimposed upon a background of moderate paraseptal and centrilobular emphysematous change. Right-sided Mediport is again noted. No new pulmonary nodules, focal masses or focal consolidation ar e seen. Punctate subpleural nodular density is unchanged from the prior on series 4 image 42 within t he posterior right lower lobe and may represent a small area of chronic atelectasis as it appears arthur ewhat linear.Stable subpleural linear atelectasis. MEDIASTINUM: Fixed hiatal hernia Thoracic aorta is of normal caliber. The heart is not enlarged. N o evidence for mediastinal mass or adenopathy. HILAR STRUCTURES: No evidence for mass. No hilar adenopathy is appreciated. OTHER: Enlarging right axillary adenopathy with the largest lymph node measuring 2.4 cm versus 1.4 cm previously. Total number of enlarged lymph nodes is estimated at 5. No left axillary adenopathy. CONTRAST CT ABDOMEN AND PELVIS FINDINGS: LIVER/GB: No calcified gallstones. No space occupying hepatic lesion. Biliary tree is of normal ca liber. PANCREAS: No inflammation. No distinct mass. SPLEEN: No splenic enlargement. No lesion seen. ADRENALS: No nodule. No thickening. KIDNEYS/BLADDER: No hydronephrosis. No nephrolithiasis. No distinct solid renal mass. Renal cystic changes are stable. BOWEL: Normal appendix. Normal bowel caliber. No inflammation. GENITAL ORGANS: No gross abnormality. LYMPH NODES: No greater than 1cm abdominal or pelvic lymph nodes are appreciated. AORTA: No significant abnormality. OSSEOUS STRUCTURES: Stable sclerosis right rib 4. Stable thoracic compression fracture. Severe multil evel degenerative disc space narrowing. OTHER: No significant additional abnormality is seen. IMPRESSION: 1. Slight increase in right axillary adenopathy. 2. Stable multifocal pleural parenchymal thickening which may reflect posttreatment change. No new pu lmonary nodule or mass. No new mediastinal adenopathy.
[2017-12-27 14:54] LABS: Blood Urea Nitrogen 22 mg/dL (9-20)
== END | disposition home or self-care (01) ==
LOC: RADPROMAIN 09:07
PROVIDERS: ATTEND Internal Medicine Hematology & Oncology
DX: J92.9 Pleural plaque without asbestos (principal); R59.0 Localized enlarged lymph nodes; C34.11 Malignant neoplasm of upper lobe, right bronchus or lung
CPT/HCPCS: 82565; 84520; 71260; 74177; J1642; Q9967

== ENCOUNTER → 2018-06-05 | Outpatient (CLI) | payer MEDICARE ==
[2018-06-05 11:09] LABS: Blood Urea Nitrogen 20 mg/dL (9-20)
--- NOTE | 2018-06-05 11:50 | CT ---
EXAMINATION TYPE: CT chest w con DATE OF EXAM: 06/05/2018 COMPARISON: 03/08/2018 HISTORY: Follow up lung cancer CT DLP: 262.5 mGycm Automated exposure control for dose reduction was used. CONTRAST: CT scan of the chest is performed with IV Contrast, patient injected with 100 mL of Isovue 300. FINDINGS: LUNGS: There is a new spiculated anterior right upper lobe mass which measures 4.2 x 3.6 x 3.1 cm and demonstrates anterior pleural extension. Additional pleural-based nodule right mid lung zone measure s 1.1 cm and appears to have been present previously. Right lower lobe pulmonary nodule image 33 tyrone ures 5 mm and is new. No additional nodules identified. Areas of parenchymal scarring and interstitia l prominence right upper lobe anteriorly. Severe emphysematous changes redemonstrated. MEDIASTINUM: There are no greater than 1 cm hilar or mediastinal lymph nodes. No pericardial effusi on is seen. Thoracic aorta is of normal caliber. The heart is not enlarged. Moderate fixed hiatal he rnia. UPPER ABDOMEN: No significant abnormality appreciated. OTHER: Again noted are multiple enlarged right axillary lymph nodes totaling approximately 8 and num bandar. The largest lymph node measures 2.0 cm. Overall the adenopathy within the right axilla has decre ased in size. No new areas of adenopathy appreciated. Stable midthoracic compression fracture. IMPRESSION: 1. there is a new spiculated mass right upper lobe anteriorly as discussed above with pleural extensi on. This is felt to reflect malignancy until proven otherwise. New right lower lobe pulmonary nodule. Scattered pleural thickening right lung. 2. Severe emphysematous changes. 3. Right axillary adenopathy persists although has slightly improved.
== END | disposition home or self-care (01) ==
LOC: RADPROMAIN 10:12
PROVIDERS: ATTEND Internal Medicine Hematology & Oncology
DX: C34.11 Malignant neoplasm of upper lobe, right bronchus or lung (principal); J43.9 Emphysema, unspecified; R59.0 Localized enlarged lymph nodes
CPT/HCPCS: 82565; 84520; 71260; J1642; Q9967

== ENCOUNTER → 2018-07-17 | Outpatient (CLI) | payer MEDICARE ==
[2018-07-17 12:30] LABS: Blood Urea Nitrogen 21 mg/dL (9-20)
--- NOTE | 2018-07-17 13:13 | CT ---
EXAMINATION TYPE: CT chest w con DATE OF EXAM: 07/17/2018 COMPARISON: 06/05/2018 and 03/08/2018 HISTORY: Lung Cancer CT DLP: 393 mGycm. Automated Exposure Control for Dose Reduction was Utilized. TECHNIQUE: CT scan of the thorax is performed following with IV Contrast, patient injected with 100 mL of Isovue 300. FINDINGS: LUNGS: There is new cavitation overall similar size of the right upper lobe pulmonary mass with spicu lated borders abutting the right mediastinal border. This currently measures 2.8 x 3.1 cm and previou sly measured 3.1 x 3.6 cm. Additionally there is decreased size of the more anterior attached nodule on series 4 image 14 previously measuring 2.2 x 1.5 cm and currently measuring 1.6 x 1.2 cm. This is marked on image 14. There is severe underlying bullous emphysematous change with biapical scarring. N o new pulmonary nodule or mass is identified. There is redemonstration of a 5 mm similar-appearing ri ght lower lobe pulmonary nodule on series 4 image 29. MEDIASTINUM: There are no greater than 1 cm hilar or mediastinal lymph nodes. Moderate coronary arter y calcifications are seen. No pericardial effusion is seen. Right-sided Mediport terminates in the right cavoatrial junction. OTHER: Matted right axillary lymph nodes are seen with the largest measuring up to 1.8 cm, appearing smaller than on the prior exam. Postsurgical changes are seen at the gastroesophageal junction with r esidual small hiatal hernia. Splenules are noted in the upper abdomen as well as bilateral renal cyst s and probable mild degree hepatic steatosis. Midthoracic compression deformity is similar to the aristides or. Mild multilevel degenerative changes of the thoracic spine are noted. IMPRESSION: 1. There appears to be response to treatment as there is decrease in size of the primary right upper lobe pulmonary mass as well as an attached anterior inferior second nodular component. Stable right l ower lobe pulmonary nodule is subcentimeter. No new mediastinal adenopathy. 2. Right axillary adenopathy continues to mildly improved.
== END | disposition home or self-care (01) ==
LOC: RADCTMAIN 11:41
PROVIDERS: ATTEND Internal Medicine Hematology & Oncology
DX: C34.11 Malignant neoplasm of upper lobe, right bronchus or lung (principal); R59.0 Localized enlarged lymph nodes; R91.1 Solitary pulmonary nodule
CPT/HCPCS: 82565; 84520; 71260; 36415; J1642; Q9967

== ENCOUNTER → 2018-10-12 | Outpatient (CLI) | payer MEDICARE ==
[2018-10-12 11:24] LABS: Blood Urea Nitrogen 24 mg/dL (9-20)
--- NOTE | 2018-10-12 12:55 | CT ---
EXAMINATION TYPE: CT ChestAbdPelvis w con DATE OF EXAM: 10/12/2018 COMPARISON: CT of the chest, abdomen, and pelvis dated 12/22/[address] chest dated 07/17/2018 HISTORY: Follow up lung cancer CT DLP: 654.2 mGycm. Automated Exposure Control for Dose Reduction was Utilized. CONTRAST: CT scan of the thorax, abdomen and pelvis is performed with IV Contrast, patient injected with 100 mL of Isovue 300. FINDINGS: LUNGS: There is stable size of the right upper lobe pulmonary mass measuring 3.1 x 2.7 cm (previously measuring 3.1 x 2.8 cm). Additionally the more anterior catheter attached nodule just inferior to th is is similar in size previously measuring 1.6 x 1.1 cm and now measuring 1.4 x 1.0 cm. There is extensive underlying emphysematous change with bullous emphysematous changes of the lung api fidelia and biapical fibrosis. In the right lower lobe the previously seen 5 mm pulmonary nodule appears decreased in size measuring 3 mm. This is marked on series 4 image 27. No new suspicious pulmonary no dules are seen. MEDIASTINUM: There are no greater than 1 cm hilar or mediastinal lymph nodes. No pericardial effusi on is seen. Moderate coronary calcifications are seen. Small hiatal hernia and postsurgical change o f the gastroesophageal junction are noted. Contrast within the esophagus may relate to recent ingesti on and decreased peristalsis or gastroesophageal reflux. OTHER: Right axillary adenopathy has worsened in the interim with the largest matted conglomeration o f lymph nodes measuring 1.8 cm on the prior and currently measuring 2.3 cm. Multiple other abnormal a ppearing peripherally enhancing lymph nodes are also seen such as on series 3 image 24. There is some fat stranding there is persistent surrounding the right axillary artery and vein. Venous occlusion r emains a possibility and could be evaluated with ultrasound. There is mild bilateral retroareolar probable gynecomastia. Right-sided Mediport is again noted termi nating in the cavoatrial junction. LIVER/GB: No focal hepatic lesion is appreciated. No intrahepatic biliary ductal dilatation. Gallblad jocelin is unremarkable.. PANCREAS: No significant abnormality is seen. SPLEEN: No significant abnormality is seen. Splenule seen adjacent to the [place] spleen. ADRENALS: There is a stable punctate right adrenal gland nodule that is less than 1 cm. Left adrenal gland is unremarkable. KIDNEYS: Bilateral renal cysts are noted. These appear stable. No suspicious renal lesion. No hydrone phrosis. BOWEL: There are numerous sigmoid diverticula without pericolonic fat stranding. Moderate amount neida ined colonic stool. No dilated large or small bowel. GENITAL ORGANS: Prostate gland is heterogenous with prior TURP sequela. LYMPH NODES: No greater than 1cm abdominal or pelvic lymph nodes are appreciated. OSSEOUS STRUCTURES: There is a mild S-shaped scoliotic curvature of the thoracolumbar spine diffuse o sseous demineralization is present with redemonstration of thoracic compression deformities with prog ressive height loss of the more superior deformity. Old healed right rib fracture deformities are not ed. There is generalized osseous demineralization present. Nonspecific sclerosis of the right iliac bone is unchanged from 2016 as is a probable sclerotic bone island of the left femur. No new suspicious osseous lesions. OTHER: Extensive atherosclerosis of the abdominal aorta and its branches. IMPRESSION: 1. Enlarging right axillary adenopathy previously measuring up to 1.8 cm and currently measuring up t o 2.3 cm. There is also fat stranding surrounding the right axillary vein and artery. Venous occlusio n is possible and could be evaluated with ultrasound. 2. Stable size of the right upper lobe pulmonary mass with an attached satellite nodule. 3. No new evidence of metastasis in the chest, abdomen, or pelvis. No new intrathoracic or intra-abdo manuel adenopathy.
== END ==
LOC: RADPROMAIN 10:02
PROVIDERS: ATTEND Internal Medicine Hematology & Oncology
DX: C34.11 Malignant neoplasm of upper lobe, right bronchus or lung (principal)
CPT/HCPCS: 82565; 84520; 71260; 74177; J1642; Q9967

== ENCOUNTER → 2019-01-01 | Outpatient (CLI) | payer MEDICARE ==
--- NOTE | 2019-01-01 14:26 | CT ---
EXAMINATION TYPE: CT ChestAbdPelvis w con DATE OF EXAM: 01/01/2019 COMPARISON: 10/12/2018 HISTORY: 78-year-old male lung cancer, suspect metastases, Follow up scan per patient. Right sided u pper body and arm swelling TECHNIQUE: Contiguous axial scanning of the chest, abdomen, and pelvis performed with IV Contrast, pa tient injected with 80 mL of Isovue 300. Delayed images through the kidneys were obtained. Coronal/sa gittal reconstructions performed. CT DLP: 1022.4 mGycm Automated exposure control for dose reduction was used. FINDINGS: CHEST: Heart normal size without pericardial effusion. Coronary vessel calcifications are present. Ectatic ascending aorta 3.7 cm. Conventional arch vessel branching anatomy. Ectatic upper descending thoracic aorta at 3.2 cm. Redemonstrated right axillary lymphadenopathy. Nodes are increased in number and size, largest measur ing 3.0 cm now versus 2.4 cm, previously. Significant in the interval is a large right superior thoracic wall mass extending from the lateral a spect of the right apex up into the right supraclavicular fossa measuring up to 8.0 cm AP by 5.2 cm w dionicio and extending up beyond the sjoix-fa-syed measuring well over 6 cm craniocaudal. Focal anterior right apical density with some adjacent surgical material is stable at approximately 3 .5 x 3.3 cm. Adjacent volume loss and architectural distortion in the superior right upper lobe. Advanced emphysematous change. No consolidation or pleural effusion. Mild to moderate bilateral gynecomastia. Right-sided chest wall and right upper extremity edema. ABDOMEN: Moderate-sized hiatal hernia redemonstrated. New hepatic metastases with approximately 10 lesions, largest measuring 2.9 cm. Portal venous system appears patent. No biliary ductal dilatation. Gallbladder, adrenal glands, spleen with inferior splenule, and mildly atrophic pancreas show no matteo s abnormality. Bilateral renal cysts redemonstrated measuring up to 3.0 cm. Moderate arthroscopic calcifications infrarenal abdominal aorta and iliac arteries. No dilated small bowel, free fluid, or free air. No mesenteric or retroperitoneal lymphadenopathy. Mild to moderate stool burden. Sigmoid diverticulosis without pericolonic inflammatory change. Sigmoi d colon is mildly redundant. Pelvis: Bladder partially distended. Prostate gland is enlarged 5.6 cm wide. Pelvic phleboliths. No abnormal fluid collection the pelvis or pelvic lymphadenopathy. Bones: Degenerative changes at the hips and degenerative levoconvex scoliosis of the lumbar spine. No obviou s osseous destructive process seen. Right anterior chest wall injection port with catheter tip at the lower SVC level. IMPRESSION: 1. DISEASE PROGRESSION WITH NEW HEPATIC METASTASES MEASURING UP TO 2.9 CM, SLIGHT INCREASE IN SIZE AN D NUMBER OF RIGHT AXILLARY LYMPHADENOPATHY (MEASURING 3.0 CM VERSUS 2.4 CM, PREVIOUSLY) AND A MARKED INTERVAL ENLARGEMENT OF A LARGE SOFT TISSUE MASS (EXTENDING UP BEYOND THE [id number] AND MEASURING AT LEAST 8.0 CM) WHICH FILLS THE RIGHT SUPRA CLAVICULAR FOSSA EXTENDING DOWN ALONG THE RIGHT LATERAL ASPECT OF THE APICAL THORACIC CAGE. 2. ADVANCED EMPHYSEMA WITH STABLE SPICULATED RIGHT APICAL OPACITY MEASURING 3.5 X 3.3 CM. 3. ASYMMETRIC RIGHT CHEST WALL AND RIGHT UPPER EXTREMITY EDEMA COULD BE SECONDARY TO SOME DEGREE OF V ENOUS OBSTRUCTION. BY CT, NO OBVIOUS COMPROMISE OF THE RIGHT SUBCLAVIAN VEIN OR SVC. 4. MODERATE SIZE HIATAL HERNIA AND SIGMOID DIVERTICULOSIS.
== END | disposition home or self-care (01) ==
LOC: RADPROMAIN 10:05
PROVIDERS: ATTEND Internal Medicine Hematology & Oncology
DX: J43.9 Emphysema, unspecified (principal); R60.0 Localized edema; K44.9 Diaphragmatic hernia without obstruction or gangrene; C78.7 Secondary malignant neoplasm of liver and intrahepatic bile duct; K57.30 Diverticulosis of large intestine without perforation or abscess without bleeding; Z91.048 Other nonmedicinal substance allergy status
CPT/HCPCS: 82565; 84520; 71260; 74177; J1642; Q9967